=== PATIENT | male | born 1975 | race Caucasian/White ===

== ENCOUNTER 2018-08-13 18:51 | Emergency (ER) | payer MEDICARE ==
[~2018-08-13] VITALS: Ht 193 cm
[~2018-08-13 18:51] MED LIST: ? ANTIBIOTIC; ANTIBIOTIC; ATIVAN; BUPROPION HCL100 MG PO; CIPROFLOXACIN500 MG PO; CYMBALTA60 MG PO; DEPAKOTE500 MG PO; DIAZEPAM5 MG PO; FIORICET 325 MG1 TAB PO; HYDROCODONE BIT1 T11 PO; LAMICTAL ODT100 MG MM; LAMICTAL100 MG PO; MOTRIN800 MG PO; NAPROSYN500 MG PO; PAXIL10 MG PO; PROAIR HFA0.09 MG/AC IH; PROVENTIL0.09 MG/AC IH; TRAZADONE HYDR100 MG PO; VICODIN 500 MG-1 TAB PO; VOLTAREN50 M1 PO; XANAX0.5 MG PO; ZITHROMAX Z PA250 MG PO; [UNRECOGNIZED DRUG - REMARK]; [UNRECOGNIZED DRUG - REMARK]; [UNRECOGNIZED DRUG - REMARK]
[2018-08-13 20:18] LABS: BASO # 0.1 10*3/uL (0.0-0.1); EOS # 0.2 10*3/uL (0.0-0.4); EOS % 2.5 % (1.0-4.0); HEMATOCRIT 50.8 % (42.0-52.0); HEMOGLOBIN 17.3 g/dl (14.0-18.0); LYMPH # 3.3 10*3/uL (1.3-4.4); LYMPH % 34.5 % (27.0-41.0); MEAN CELL VOLUME 93.6 fl (80.0-94.0); MEAN CORPUSCULAR HGB 31.9 pg (27.0-31.0); MEAN CORPUSCULAR HGB CONC 34.1 g/dl (33.0-37.0); MEAN PLATELET VOLUME 10.6 fl (9.6-12.3); MONO # 0.7 10*3/uL (0.1-1.0); MONO % 7.4 % (3.0-9.0); NEUT # 5.1 10*3/uL (2.3-7.9); NEUT % 54.5 % (47.0-73.0); PLATELET COUNT AUTOMATED 218 10*3/uL (130-400); RED BLOOD COUNT 5.43 10*6/uL (4.50-5.90); RED CELL DISTRI WIDTH 13.2 % (0-14.5); WHITE BLOOD COUNT 9.4 10*3/uL (4.8-10.8)
[2018-08-13 20:38] LABS: ALBUMIN 3.9 gm/dl (3.1-4.5); ALKALINE PHOSPHATASE 76 U/L (45-117); BUN 12 mg/dl (7-24); CHLORIDE 107 mmol/L (98-107); CREATININE 1.01 mg/dL (0.70-1.30); POTASSIUM 3.9 mmol/L (3.5-5.1); SGOT/AST 27 IU/L (3-35); SGPT/ALT 29 U/L (12-78); SODIUM 140 mmol/L (136-145); TOTAL PROTEIN 7.1 gm/dL (6.4-8.2)
[2018-08-13 20:40] LABS: ACETAMINOPHEN (TYLENOL) < 5.0 ug/ml (10-30)
[2018-08-13 20:46] LABS: ETHYL ALCOHOL < 3.0 mg/dl (<3)
== END 2018-08-13 20:55 | disposition home or self-care (01) ==
LOC: ED 18:51
PROVIDERS: Physician Assistant
DX: F41.0 Panic disorder [episodic paroxysmal anxiety] (principal); R05 Cough; F41.9 Anxiety disorder, unspecified; J45.909 Unspecified asthma, uncomplicated; F17.200 Nicotine dependence, unspecified, uncomplicated

== ENCOUNTER → 2020-06-10 | Outpatient (CLI) | payer OTHER ==
[2020-06-10 09:47] LABS: BASO # 0.1 10*3/uL (0.0-0.1); EOS # 0.3 10*3/uL (0.0-0.4); EOS % 3.2 % (1.0-4.0); HEMATOCRIT 52.9 % (42.0-52.0); LYMPH # 2.7 10*3/uL (1.3-4.4); LYMPH % 28.5 % (27.0-41.0); MEAN CELL VOLUME 93.3 fl (80.0-94.0); MEAN CORPUSCULAR HGB 30.7 pg (27.0-31.0); MEAN CORPUSCULAR HGB CONC 32.9 g/dl (33.0-37.0); MEAN PLATELET VOLUME 10.6 fl (9.6-12.3); MONO % 10.8 % (3.0-9.0); NEUT # 5.3 10*3/uL (2.3-7.9); NEUT % 56.2 % (47.0-73.0); PLATELET COUNT AUTOMATED 208 10*3/uL (130-400); RED BLOOD COUNT 5.67 10*6/uL (4.50-5.90); RED CELL DISTRI WIDTH 13.3 % (0-14.5); WHITE BLOOD COUNT 9.4 10*3/uL (4.8-10.8)
[2020-06-10 10:15] LABS: BUN 16 mg/dl (7-24); CHLORIDE 101 mmol/L (98-107); CHOLESTEROL 273 mg/dL (<200); CREATININE 0.99 mg/dL (0.70-1.30); HDL CHOLESTEROL 37 mg/dl (40-60); POTASSIUM 3.5 mmol/L (3.5-5.1); SGOT/AST 16 IU/L (3-35); SGPT/ALT 48 U/L (12-78); SODIUM 136 mmol/L (136-145); TOTAL PROTEIN 7.7 gm/dL (6.4-8.2); TRIGLYCERIDES 736 mg/dl (<150)
[2020-06-10 10:16] LABS: ALKALINE PHOSPHATASE 103 U/L (45-117)
== END | disposition home or self-care (01) ==
LOC: LAB 08:53
PROVIDERS: ATTEND Nurse Practitioner Family
DX: M25.562 Pain in left knee (principal); M25.572 Pain in left ankle and joints of left foot; I10 Essential (primary) hypertension; E78.2 Mixed hyperlipidemia; E55.9 Vitamin D deficiency, unspecified

== ENCOUNTER 2023-01-17 14:36 | Emergency (ER) | payer OTHER ==
[2023-01-17 15:42] LABS: BASO # 0.1 10*3/uL (0.0-0.1); BASO % 0.8 % (0.0-1.0); EOS # 0.2 10*3/uL (0.0-0.4); HEMATOCRIT 50.2 % (42.0-52.0); LYMPH # 3.5 10*3/uL (1.3-4.4); LYMPH % 35.2 % (27.0-41.0); MEAN CELL VOLUME 92.3 fl (80.0-94.0); MEAN CORPUSCULAR HGB 31.8 pg (27.0-31.0); MEAN CORPUSCULAR HGB CONC 34.5 g/dl (33.0-37.0); MEAN PLATELET VOLUME 10.6 fl (9.6-12.3); MONO # 0.8 10*3/uL (0.1-1.0); MONO % 7.6 % (3.0-9.0); NEUT # 5.4 10*3/uL (2.3-7.9); NEUT % 54.1 % (47.0-73.0); PLATELET COUNT AUTOMATED 224 10*3/uL (130-400); RED BLOOD COUNT 5.44 10*6/uL (4.50-5.90)
[2023-01-17 16:06] LABS: ALKALINE PHOSPHATASE 83 U/L (46-116); BUN 11 mg/dl (9-23); CHLORIDE 103 mmol/L (98-107); POTASSIUM 3.6 mmol/L (3.4-5.1); SGPT/ALT 56 U/L (10-49); TOTAL PROTEIN 7.2 gm/dL (6.0-8.0)
[2023-01-17 16:07] LABS: ETHYL ALCOHOL < 3.0 mg/dl (<3)
[2023-01-17 19:14] LABS: BILIRUBIN Negative (Negative); BLOOD Negative (Negative); CLARITY Clear (Clear); COLOR Yellow (Yellow); GLUCOSE Negative (Negative); KETONE Negative (Negative); LEUKO ESTERASE Negative (Negative); NITRITE Negative (Negative); SPECIFIC GRAVITY 1.025 (1.001-1.030); UROBILINOGEN 0.2 E.U./dl (0.0-1.0)
[2023-01-17 19:28] LABS: URINE AMPHETAMINES Negative (1000ng/ml); URINE BARBITURATES Negative (200ng/ml); URINE BENZODIAZEPINES Negative (200ng/ml); URINE CANNABINOIDS (THC) Negative (50ng/ml); URINE COCAINE Negative (300ng/ml); URINE METHADONE Negative (300ng/ml); URINE OPIATES Negative (300ng/ml); URINE PHENCYCLIDINE Negative (25ng/ml)
[2023-01-17 19:33] LABS: EPITHELIAL CELLS 0-2; RBC 0-2 rbc/hpf (0-2); WBC 0-2 wbc/hpf (0-5)
[2023-01-19] MEDS ORDERED: ATORVASTATIN CA20 M1 PO (08:12)
[2023-01-19] MEDS ORDERED: FENOFIBRATE145 M1 PO (08:13)
[2023-01-19] MEDS ORDERED: CETIRIZINE HYDR10 MG PO (08:13)
[2023-01-19] MEDS ORDERED: LISINOPRIL10 M1 PO (08:14)
[2023-01-19] MEDS ORDERED: POTASSIUM CHLO20 ME3 PO (08:14)
[2023-01-19] MEDS ORDERED: HYDROCHLOROTHIA25 M1 PO (08:14)
[2023-01-19] MEDS ORDERED: REXULTI3 MG PO (08:16)
[2023-01-19] MEDS ORDERED: SERTRALINE HYD100 MG PO (08:16)
[2023-01-19] MEDS ORDERED: VASCEPA1 G1 PO (08:16)
[2023-01-19] MEDS ORDERED: BREO ELLIPTA 11 EACH INH (08:18)
[2023-01-19] MEDS ORDERED: FLUTICASONE P15.8 ML NAS (08:19)
[2023-01-19] MEDS ORDERED: PROAIR RESPICL90 MCG INH (08:19)
== END 2023-01-19 16:03 | disposition short-term general hospital (02) ==
LOC: ED 14:36
PROVIDERS: Family Medicine
DX: R56.9 Unspecified convulsions (principal); F32.A Depression, unspecified; J45.909 Unspecified asthma, uncomplicated; F41.9 Anxiety disorder, unspecified; I10 Essential (primary) hypertension

== ENCOUNTER 2025-02-14 11:38 | Emergency (ER) | payer OTHER ==
[~2025-02-14] VITALS: Ht 193 cm; Wt 136.1 kg
[~2025-02-14 11:38] MED LIST changes: +ATORVASTATIN CA20 M1 PO; +BREO ELLIPTA 11 EACH INH; +CETIRIZINE HYDR10 MG PO; +FENOFIBRATE145 M1 PO; +FLUTICASONE P15.8 ML NAS; +HYDROCHLOROTHIA25 M1 PO; +LISINOPRIL10 M1 PO; +POTASSIUM CHLO20 ME3 PO; +PROAIR RESPICL90 MCG INH; +REXULTI3 MG PO; +SERTRALINE HYD100 MG PO; +VASCEPA1 G1 PO
[2025-02-14] MEDS ORDERED: ZOLOFT100 MG PO (12:19)
[2025-02-14] MEDS ORDERED: TRAZODONE100 MG PO (12:19)
[2025-02-14] MEDS ORDERED: REXULTI3 MG PO (12:20)
[2025-02-14] MEDS ORDERED: BUSPIRONE10 MG PO (12:21)
[2025-02-14] MEDS ORDERED: POTASSIUM CHLO20 ME4 PO (12:21)
[2025-02-14] MEDS ORDERED: MELOXICAM15 MG PO (12:22)
[2025-02-14] MEDS ORDERED: HYDROCHLOROTHIA25 M1 PO (12:23)
[2025-02-14] MEDS ORDERED: FENOFIBRATE145 M1 PO (12:23)
[2025-02-14] MEDS ORDERED: CETIRIZINE10 MG PO (12:24)
[2025-02-14] MEDS ORDERED: LIPITOR20 MG PO (12:25)
[2025-02-14] MEDS ORDERED: LEVETIRACETAM IN NACL (ISO-OS) 100 ML IV ONE (12:25)
[2025-02-14] MEDS ORDERED: BREO ELLIPTA 11 EACH PO (12:25)
[2025-02-14 12:28] LABS: BASO # 0.1 10*3/uL (0.0-0.1); BASO % 0.7 % (0.0-1.0); EOS # 0.4 10*3/uL (0.0-0.4); EOS % 3.6 % (1.0-4.0); HEMATOCRIT 47.5 % (42.0-52.0); MEAN CELL VOLUME 94.1 fl (80.0-94.0); MEAN CORPUSCULAR HGB 30.9 pg (27.0-31.0); MEAN CORPUSCULAR HGB CONC 32.8 g/dl (33.0-37.0); MEAN PLATELET VOLUME 10.2 fl (9.6-12.3); MONO # 0.9 10*3/uL (0.1-1.0); MONO % 9.1 % (3.0-9.0); PLATELET COUNT AUTOMATED 216 10*3/uL (130-400); RED BLOOD COUNT 5.05 10*6/uL (4.50-5.90); RED CELL DISTRI WIDTH 13.9 % (0-14.5); WHITE BLOOD COUNT 9.9 10*3/uL (4.8-10.8)
[2025-02-14 12:52] LABS: ALKALINE PHOSPHATASE 77 U/L (46-116); BUN 14 mg/dl (9-23); CHLORIDE 105 mmol/L (98-107); ETHYL ALCOHOL < 3.0 mg/dl (<3); POTASSIUM 3.7 mmol/L (3.4-5.1); SGPT/ALT 32 U/L (5-49); TOTAL PROTEIN 6.5 gm/dL (6.0-8.0)
[2025-02-14 14:10] LABS: URINE AMPHETAMINES Negative (1000ng/ml); URINE BARBITURATES Negative (200ng/ml); URINE BENZODIAZEPINES Positive (200ng/ml); URINE CANNABINOIDS (THC) Negative (50ng/ml); URINE COCAINE Negative (300ng/ml); URINE METHADONE Negative (300ng/ml); URINE OPIATES Negative (300ng/ml); URINE PHENCYCLIDINE Negative (25ng/ml)
[2025-02-14 14:11] LABS: BILIRUBIN Negative (Negative); BLOOD Negative (Negative); COLOR Yellow (Yellow); GLUCOSE Negative (Negative); SPECIFIC GRAVITY 1.025 (1.001-1.030)
[2025-02-14 14:12] LABS: LEUKO ESTERASE Negative (Negative); NITRITE Negative (Negative); UROBILINOGEN 0.2 E.U./dl (0.0-1.0)
[2025-02-14 14:15] LABS: CLARITY Clear (Clear); KETONE Trace (Negative); PH 5.5 (4.5-8.0)
[2025-02-14] MEDS ORDERED: KEPPRA500 MG PO (14:25)
[2025-02-14 14:44] LABS: RBC 0-2 rbc/hpf (0-2)
[2025-02-14 14:45] LABS: BACTERIA TRACE; CALCIUM OXALATE CRYSTALS Trace; MUCOUS 1+
== END 2025-02-14 14:30 | disposition home or self-care (01) ==
LOC: ED 11:38
PROVIDERS: Emergency Medicine
DX: R56.9 Unspecified convulsions (principal); I10 Essential (primary) hypertension; J45.909 Unspecified asthma, uncomplicated; F32.A Depression, unspecified; F41.9 Anxiety disorder, unspecified; Z79.899 Other long term (current) drug therapy

== ENCOUNTER 2025-02-28 19:44 | Emergency (ER) | payer OTHER ==
[~2025-02-28] VITALS: Ht 188 cm; Wt 139.7 kg
[~2025-02-28 19:44] MED LIST changes: +BREO ELLIPTA 11 EACH PO; +BUSPIRONE10 MG PO; +CETIRIZINE10 MG PO; +KEPPRA500 MG PO; +LIPITOR20 MG PO; +MELOXICAM15 MG PO; +POTASSIUM CHLO20 ME4 PO; +TRAZODONE100 MG PO; +ZOLOFT100 MG PO
[2025-02-28] MEDS ORDERED: LEVETIRACETAM IN NACL (ISO-OS) 100 ML IV ONE (20:15)
[2025-02-28 20:22] LABS: BASO # 0.1 10*3/uL (0.0-0.1); BASO % 0.7 % (0.0-1.0); EOS # 0.2 10*3/uL (0.0-0.4); EOS % 1.6 % (1.0-4.0); HEMATOCRIT 47.8 % (42.0-52.0); MEAN CELL VOLUME 93.5 fl (80.0-94.0); MEAN CORPUSCULAR HGB 31.1 pg (27.0-31.0); MEAN CORPUSCULAR HGB CONC 33.3 g/dl (33.0-37.0); MEAN PLATELET VOLUME 10.6 fl (9.6-12.3); MONO # 0.7 10*3/uL (0.1-1.0); MONO % 7.3 % (3.0-9.0); NEUT # 6.4 10*3/uL (2.3-7.9); PLATELET COUNT AUTOMATED 248 10*3/uL (130-400); RED BLOOD COUNT 5.11 10*6/uL (4.50-5.90); RED CELL DISTRI WIDTH 13.6 % (0-14.5); WHITE BLOOD COUNT 10.1 10*3/uL (4.8-10.8)
[2025-02-28 20:45] LABS: ALKALINE PHOSPHATASE 87 U/L (46-116); BUN 12 mg/dl (9-23); CHLORIDE 104 mmol/L (98-107); LIPASE 25 U/L (12-53); POTASSIUM 3.8 mmol/L (3.4-5.1); SGPT/ALT 39 U/L (5-49); TOTAL PROTEIN 7.1 gm/dL (6.0-8.0)
[2025-02-28] MEDS ORDERED: SODIUM CHLORIDE 0.9% 1,000 ML IV ONE (22:00)
[2025-03-01] MEDS ORDERED: fentaNYL CITRATE 100 MCG/2 ML VIAL IV ONE (00:40)
== END 2025-03-01 00:51 | disposition short-term general hospital (02) ==
LOC: ED 19:44
PROVIDERS: Emergency Medicine
DX: S32.048A Other fracture of fourth lumbar vertebra, initial encounter for closed fracture (principal); S10.91XA Abrasion of unspecified part of neck, initial encounter; T14.8XXA Other injury of unspecified body region, initial encounter; R56.9 Unspecified convulsions; R73.9 Hyperglycemia, unspecified; F41.9 Anxiety disorder, unspecified; Z79.899 Other long term (current) drug therapy; W20.8XXA Other cause of strike by thrown, projected or falling object, initial encounter; Y93.89 Activity, other specified; Y92.89 Other specified places as the place of occurrence of the external cause; Y99.8 Other external cause status

== ENCOUNTER 2025-04-01 14:17 | Emergency (ER) | payer OTHER, MEDICAID ==
[2025-04-01] MEDS ORDERED: Amoxicillin/Clavulanate Pota 875 MG TAB PO ONE (14:35)
[2025-04-01] MEDS ORDERED: IBUPROFEN 800 MG TAB PO ONE (14:35)
[2025-04-01] MEDS ORDERED: LORazepam 1 MG TAB PO ONE (14:35)
[2025-04-01] MEDS ORDERED: MELOXICAM15 MG PO (14:36)
[2025-04-01] MEDS ORDERED: AMOX-CLAV 875-1 EACH PO (14:36)
== END 2025-04-01 14:54 | disposition home or self-care (01) ==
LOC: ED 14:17
DX: K04.7 Periapical abscess without sinus (principal); K02.9 Dental caries, unspecified; R25.1 Tremor, unspecified; Z79.899 Other long term (current) drug therapy

== ENCOUNTER 2025-04-16 10:11 | Emergency (ER) | payer OTHER, MEDICAID ==
[~2025-04-16] VITALS: Ht 185.4 cm; Wt 134.3 kg
[~2025-04-16 10:11] MED LIST changes: +AMOX-CLAV 875-1 EACH PO
[2025-04-16] MEDS ORDERED: LEVETIRACETAM IN NACL (ISO-OS) 100 ML IV ONE (10:30)
[2025-04-16 10:44] LABS: BASO # 0.1 10*3/uL (0.0-0.1); BASO % 1.0 % (0.0-1.0); EOS # 0.3 10*3/uL (0.0-0.4); EOS % 3.5 % (1.0-4.0); MEAN CELL VOLUME 94.7 fl (80.0-94.0); MEAN CORPUSCULAR HGB 31.5 pg (27.0-31.0); MEAN PLATELET VOLUME 10.0 fl (9.6-12.3); MONO # 0.6 10*3/uL (0.1-1.0); MONO % 7.5 % (3.0-9.0); NEUT # 4.4 10*3/uL (2.3-7.9); NEUT % 52.9 % (47.0-73.0); NUCLEATED RED BLOOD CELL 0.0 % (0.0-0.0); NUCLEATED RED BLOOD CELL 0.0 10*3/uL (0.0-0.0); PLATELET COUNT AUTOMATED 252 10*3/uL (130-400); RED CELL DISTRI WIDTH 12.9 % (0-14.5)
[2025-04-16 11:05] LABS: BUN 9 mg/dl (9-23)
== END 2025-04-16 11:29 | disposition home or self-care (01) ==
LOC: ED 10:11
PROVIDERS: Emergency Medicine
DX: F44.5 Conversion disorder with seizures or convulsions (principal); F41.9 Anxiety disorder, unspecified; Z79.899 Other long term (current) drug therapy